=== PATIENT | male | born 1965 | race Caucasian/White ===

== ENCOUNTER → 2016-07-11 | Outpatient (CLI) | payer OTHER ==
[~2016-07-11] MED LIST: ASCO10003 PO; CALC-51 PO; CHOL20007 PO; GLUCTAB7 PO; MAGN400T6 PO; OMEG10007 PO; POTA99TA PO; REDCAP2 PO
[2016-07-11 12:08] LABS: BASO % 1.3 %; COMPLETE YES; EOS % 4.5 %; HEMATOCRIT 50.1 % (42-52); LYMPH % 28.7 %; LYMPH ABS # 2.15 K/uL (1.2-3.4); MEAN CELL VOLUME 92.1 fL (80-100); MEAN CORPUSCULAR HGB CONC 34.7 g/dl (32-36); MEAN PLATELET VOLUME 10.6 fL (7.4-10.4); MONO % 10.1 %; NEUT % 55.4 %; PLATELET COUNT 268 K/uL (130-400); RED BLOOD COUNT 5.44 M/uL (4.7-6.1)
[2016-07-11 12:50] LABS: ALT/SGPT 48 U/L (12-78); BLOOD UREA NITROGEN 15 mg/dl (7-18); BUN/CREATININE RATIO 13.9 (10-20); CALCIUM 9.1 mg/dl (8.5-10.1); CARBON DIOXIDE 28 mmol/L (21-32); CHLORIDE 103 mmol/L (98-107); CHOLESTEROL 350 mg/dl (0-200); GLUCOSE 116 mg/dl (70-99); POTASSIUM 4.2 mmol/L (3.5-5.1); SODIUM 138 mmol/L (136-145)
[2016-07-11 13:00] LABS: ALKALINE PHOSPHATASE 70 U/L (45-117); AST/SGOT 30 U/L (15-37); CHOLESTEROL/HDL RATIO 8.3; HDL CHOLESTEROL 42 mg/dl; LDL CHOLESTEROL CALCULATED 287 mg/dl; THYROID STIMULATING HORMONE 0.694 uIu/ml (0.300-4.500); TRIGLYCERIDES 107 mg/dl (0-150); VERY LOW DENSITY LIPOPROT CALC 21 mg/dl
== END | disposition home or self-care (01) ==
LOC: C.LABPVFM 08:07
PROVIDERS: ATTEND Nurse Practitioner Family
DX: R53.83 Other fatigue (principal); E78.5 Hyperlipidemia, unspecified; R03.0 Elevated blood-pressure reading, without diagnosis of hypertension

== ENCOUNTER → 2016-07-11 | Outpatient (CLI) | payer OTHER ==
--- NOTE | 2016-07-11 08:07 | DIAGNOSTIC IMAGING REPORT ---
SCROTAL ULTRASOUND CLINICAL HISTORY: Left testicular pain. COMPARISON STUDY: None. TECHNIQUE: Grayscale and color and duplex Doppler sonography of the scrotum was performed. FINDINGS: The right testis measures 4 x 1.9 x 2.8 cm and the left measures 4.3 x 1.7 x 2.8 cm. No testicular mass was identified. Color flow is identified within each testis. There were small bilateral hydroceles. There was no evidence of epididymitis. On this exam, the left testis moved between the left hemiscrotum and the inguinal canal. There was a reducible fat-containing left inguinal hernia. IMPRESSION: 1. No evidence of testicular torsion. No testicular mass. 2. Small reducible fat-containing left inguinal hernia. 3. During this exam, the left testis moved between the left hemiscrotum and the inguinal canal. 4. Small bilateral hydroceles. Electronically signed by: Barorn Barton M.D. 07/11/2016 8:05 AM Dictated Date/Time: 07/11/2016 8:03 AM
== END | disposition home or self-care (01) ==
LOC: C.ULTR 07:18
PROVIDERS: ATTEND Nurse Practitioner Family
DX: N50.812 Left testicular pain (principal)

== ENCOUNTER → 2017-06-17 | Outpatient (CLI) | payer OTHER | END | disposition home or self-care (01) | LOC: C.LABPVFM 15:54 | PROVIDERS: ATTEND Family Medicine | DX: R19.4 Change in bowel habit (principal) ==

== ENCOUNTER → 2017-07-04 | Outpatient (CLI) | payer OTHER ==
[~2017-07-04] MED LIST changes: +OPTIRAY 320 IV PRN
--- NOTE | 2017-07-04 13:16 | DIAGNOSTIC IMAGING REPORT ---
ABDOMEN AND PELVIS CT WITH IV CONTRAST CT DOSE: 666.19 mGy.cm HISTORY: Acute generalized abdominal pain with bloating R14.0 Abdominal bloatingabd bloating and discomfort (mainly epig TECHNIQUE: Multiaxial CT images of the abdomen and pelvis were performed following the use of intravenous contrast. A dose lowering technique was utilized adhering to the principles of ALARA. COMPARISON STUDY: Testicular ultrasound 07/11/2016. FINDINGS: Lung bases are clear. No pneumatosis or pneumoperitoneum identified. The cardiac chambers are unremarkable. Calcifications of the aortic annulus are partially imaged. Low attenuating 6 mm lesion of the left hepatic lobe is noted in addition to a circumscribed low attenuating 1.5 cm lesion of the right hepatic lobe, both of which suggest hepatic cysts. No intrahepatic biliary ductal dilation. The spleen, pancreas, gallbladder and adrenal glands are within normal limits. Kidneys, ureters and urinary bladder are within normal limits. Small bilateral fat filled inguinal hernias with trace left-sided fluid within the left hernia sac. Mild to moderate mixed plaquing of the aorta without aneurysm. No bulky adenopathy. No bowel obstruction or focal bowel wall thickening. There are a few scattered noninflamed colonic diverticula. There is nondistention involving the majority of the colon. Normal appendix. Small fat filled periumbilical hernia, diastases 2.0 cm. The bones appear intact. There is severe facet arthrosis at L4-L5 and L5-S1. Mild levoscoliosis of the lumbar spine. IMPRESSION: 1. No acute intra-abdominal or intrapelvic abnormality identified. No bowel obstruction or focal bowel wall thickening. 2. Normal appendix. 3. Small fat filled periumbilical hernia. Electronically signed by: Jean Pierre Cardoza M.D. 07/04/2017 1:15 PM Dictated Date/Time: 07/04/2017 12:59 PM
== END | disposition home or self-care (01) ==
LOC: C.CTS 12:11
PROVIDERS: ATTEND Family Medicine
DX: R14.0 Abdominal distension (gaseous) (principal)

== ENCOUNTER 2020-03-21 06:45 | Observation (INO) ==
--- NOTE | 2020-02-23 13:03 | PAT Medication Instructions ---
Medication Instructions Date of Service February 23, 2020 Home Medications L-Arginine(alpha-ketoglutarat) 600 mg PO QAM ascorbic acid (vitamin C) [Vitamin C] 2,000 mg PO QAM magnesium oxide 400 mg PO QAM red yeast rice 600 mg PO QAM cholecalciferol (vitamin D3) [Vitamin D3] 125 mcg PO QAM potassium gluconate 595 mg PO QAM calcium 600 mg PO QAM cetirizine 10 mg PO QAM diphenhydramine HCl [Benadryl] 25 mg PO HS PRN meloxicam 15 mg PO QAM omega 5-mmt-wrk-fish oil [[place] 3 Fish Oil] 1 cap PO QAM ASK your surgeon for instructions meloxicam 15 mg PO QAM STOP taking 2 weeks before surgery (or as soon as possible if surgery is within 2 weeks) L-Arginine(alpha-ketoglutarat) 600 mg PO QAM red yeast rice 600 mg PO QAM omega 4-dzq-eem-fish oil [[place] 3 Fish Oil] 1 cap PO QAM DO NOT take the morning of surgery ascorbic acid (vitamin C) [Vitamin C] 2,000 mg PO QAM magnesium oxide 400 mg PO QAM cholecalciferol (vitamin D3) [Vitamin D3] 125 mcg PO QAM potassium gluconate 595 mg PO QAM calcium 600 mg PO QAM cetirizine 10 mg PO QAM Take evening before surgery diphenhydramine HCl [Benadryl] 25 mg PO HS PRN(if needed) Other Notes If you have any questions please call us at [phone] or [phone] or [phone] or [phone]
--- NOTE | 2020-02-26 09:57 | Anesthesiology Consultation ---
Date of Service February 26, 2020 Assessment & Plan (1) Encounter for pre-operative examination: COVID Status: As of 02/25 assessment, patient denies travel to endemic area, known exposure/sick contacts, or symptoms of COVID19. Patient instructed that they and their household members must follow strict social distancing guidelines, wear a mask in public and avoid travel/events/gatherings for 14 days prior to surgery. Patient denies any Thanksgiving plans. Preoperative COVID19 testing to be completed prior to surgery per surgeon's arrangements. Patient made aware to self-isolate as much as possible between COVID testing and surgery. PCP office flagged re: significant hypertension at PAT visit. Chart Review Chart Review: Acceptable Risk for Surgery (pending PCP clearance 02/28) and Patient seen in Pre Admission Testing Teaching & Discussion Instructed NPO after midnight before surgery, except medications with 15 cc of water. Medication instructions provided according to the [facility] guidelines. History Surgery Operation Date: 03/21/20 07:15 Proposed Procedures p Left Anterior Total Hip Arthroplasty, Right Anterior Total Hip Arthroplasty - Shon Ellison DO Height/Weight Height: 5 ft 11 in Weight: 100.698 kg Allergies Allergy/AdvReac Type Severity Reaction Status Date / Time No Known Drug Allergies Allergy Unknown . Verified 02/16/20 10:14 Medications Home Medications Medication Instructions Recorded Confirmed Last Taken L-Arginine(alpha-ketoglutarat) 600 mg PO QAM 01/28/18 02/16/20 10/23/19 ascorbic acid (vitamin C) [Vitamin 2,000 mg PO QAM 01/28/18 02/16/20 10/26/19 08:00 C] magnesium oxide 400 mg PO QAM 01/28/18 02/16/20 10/26/19 08:00 red yeast rice 600 mg PO QAM 01/28/18 02/16/20 10/18/19 cholecalciferol (vitamin D3) 125 mcg PO QAM 10/01/19 02/16/20 10/26/19 08:00 [Vitamin D3] potassium gluconate 595 mg PO QAM 10/01/19 02/16/20 10/26/19 08:00 calcium 600 mg PO QAM 02/16/20 02/16/20 Unknown cetirizine 10 mg PO QAM 02/16/20 02/16/20 Unknown meloxicam 15 mg PO QAM 02/16/20 02/16/20 Unknown omega 9-ezg-bih-fish oil [[place] 3 1 cap PO QAM 02/16/20 02/16/20 Unknown Fish Oil] diphenhydramine HCl 25 mg PO HS PRN 02/26/20 02/26/20 Unknown Past Medical History Medical History Hernia, ventral Hyperlipidemia Hypertension "borderline" no medication Inguinal hernia RT Insomnia Exercise / Class Metabolic Activity II 4-5 Yardwork/Stairs/Walk up hill Past Family History Family History Mother Family history of diabetes mellitus Family hx of colon cancer Colorectal cancer Myocardial infarction Hypertension Father Hypertension Denies family history of Ovarian cancer Prostate cancer Breast cancer Past Surgical History Surgical History History of colonoscopy History of repair of left rotator cuff History of tonsillectomy Hx of elbow surgery RT S/P left inguinal hernia repair (10/27/19) Left Open Indirect Inguinal Hernia Repair; Bassini Repair Dr. Rosado 10/27/2019 [place] teeth removed Past Anesthesia History No Hx of Anesthesia Complications and No Family Hx of Anesthesia Complications History of PONV No Hx of PONV and No Hx of Motion Sickness Social History Smoking Status: Never smoker Do You Dip or Chew Tobacco: No Hx Alcohol Use: Yes Alcohol type: beer alcohol intake frequency: a few times a month Hx Substance Use: No substance use type: does not use Review of Systems Pt denies any recent chest pain, shortness of breath, palpitations, cough, fever, URI, or uncontrolled acid reflux. Physical Exam Vital Signs BP: 165/117. Rpt 15 mins later 148/98. Pt very anxious. Seeing PCP prior to surgery. P: 70bpm SPO2: 98% RA T: 98.0 F R: 12 ENMT Mouth: no chipped teeth and no loose teeth Thyromental Distance: > or= 3.5 Finger Breadths Mallampati Class: I Neck neck extension not limited and no facial hair Respiratory normal respiratory effort, lungs clear to auscultation Cardiovascular Rate/Rhythm: regular rate and regular rhythm Heart Sounds: + murmur (I/ pansystolic mitral area) Testing Laboratory Results 02/26/20 10:29 02/26/20 10:29 PT 10.7 Seconds (9.0-12.0) 02/26/20 10:29 INR 1.0 (0.9-1.1) 02/26/20 10:29 APTT 26.8 Seconds (21.0-31.0) 02/26/20 10:29 Hemoglobin A1c 6.0 % (4.5-5.6) H 02/26/20 10:29 Urine Color Yellow 02/26/20 10:29 Urine Appearance Clear (Clear) 02/26/20 10:29 Urine pH 7.5 (4.5-7.5) 02/26/20 10:29 Ur Specific [place] 1.011 (1.000-1.030) 02/26/20 10:29 Urine Protein Negative (Negative) 02/26/20 10:29 Urine Glucose (UA) Negative (Negative) 02/26/20 10:29 Urine Ketones Negative (Negative) 02/26/20 10:29 Urine Nitrite Negative (Negative) 02/26/20 10:29 Ur Leukocyte Esterase Negative (Negative) 02/26/20 10:29 Blood Type A Positive 02/26/20 10:29 Antibody Screen NEGATIVE 02/26/20 10:29 Electrocardiogram Date: 09/24/19 Findings: + NSR @ (80bpm) Chest X-Ray Date: 09/24/19 Findings: + NAD
[2020-02-26 11:19] LABS: Basophils # (auto) 0.06 K/uL (0-0.2); Eosinophils # (auto) 0.18 K/uL (0-0.5); Eosinophils % (auto) 2.9 %; Hematocrit (blood only) 42.9 % (42-52); Hemoglobin 14.5 g/dL (14.0-18.0); Immature Granulocytes # (auto) 0.02 K/uL (0.00-0.02); Immature Granulocytes % (auto) 0.3 %; Lymphocytes # (auto) 2.21 K/uL (1.2-3.4); Lymphocytes % (auto) 35.4 %; Mean Corpuscular Hemoglobin 30.7 pg (25-34); Mean Corpuscular Hgb Conc 33.8 g/dL (32-36); Mean Corpuscular Volume 90.7 fL (80-100); Mean Platelet Volume 9.9 fL (7.4-10.4); Monocytes # (auto) 0.51 K/uL (0.11-0.59); Monocytes % (auto) 8.2 %; Neutrophils # (auto) 3.27 K/uL (1.4-6.5); Neutrophils % (auto) 52.2 %; Platelet Count 266 K/uL (130-400); RDW Coefficient of Variation 12.8 % (11.5-14.5); RDW Standard Deviation 42.5 fL (36.4-46.3); Red Blood Count 4.73 M/uL (4.7-6.1); White Blood Count 6.25 K/uL (4.8-10.8)
[2020-02-26 11:26] LABS: Estimated Average Glucose 126 mg/dl
[2020-02-26 11:29] LABS: Appearance Urine Clear (Clear); Bilirubin Urine Negative (Negative); Blood Urine Negative (Negative); Color Urine Yellow; Glucose Urine UA Negative (Negative); Ketones Urine Negative (Negative); Leukocyte Esterase Urine Negative (Negative); Nitrite Urine Negative (Negative); Protein Urine Negative (Negative); Specific Gravity Urine 1.011 (1.000-1.030); Urobilinogen Urine Negative (Negative); pH Urine 7.5 (4.5-7.5)
[2020-02-26 11:31] LABS: Partial Thromboplastin Time 26.8 Seconds (21.0-31.0); Prothrombin Time 10.7 Seconds (9.0-12.0)
[2020-02-26 12:50] LABS: Albumin Level 3.7 gm/dl (3.4-5.0); BUN Creatinine Ratio 17.2 (10-20); Calcium 9.4 mg/dl (8.5-10.1); Creatinine Clr Calc Pharmacy 114.8 ml/min; Est GFR (African American) 110.4; Est GFR (Non-African American) 95.3; Potassium 4.2 mmol/L (3.5-5.1)
--- NOTE | 2020-03-20 15:03 | History & Physical Report ---
Date of Service March 21, 2020 Assessment & Plan (1) Degenerative joint disease of right hip: (2) Degenerative joint disease of left hip: I have indicated the patient for bilateral anterior total hip replacements. The risks, benefits and complications of surgery were explained to the patient which include but not limited to infection, acute blood loss, DVT/PE, injury to nerves, vessels, bone, soft tissue, arthrofibrosis, chronic pain, failure of the prosthesis, hip dislocation, leg length discrepancy, need for additional surgery, cardiac and pulmonary events and . The patient wished to proceed with surgery and informed consent was obtained at this time. We will plan for Lovenox post-operatively for DVT prophylaxis. Upon discharge the patient will be discharged home with home health services. Appropriate clearances by PCP were obtained. History of Present Illness Chief Complaint: Bilateral hip pain/DJD Primary Care Provider: Cori Urbina MD The patient is a 54 year old male who presents with complaints of severe bilateral hip pain and DJD. The patient has failed outpatient conservative treatments to this point which included NSAIDs, IA corticosteroid injections, home exercise/walking program and activty modification. The patient's pain and limited function have progressed to the point where they severely hinder their activities of daily living and they no longer tolerate exercise programs. They are requesting to proceed with total hip replacement surgery. Allergies Allergy/AdvReac Type Severity Reaction Status Date / Time No Known Drug Allergies Allergy Unknown . Verified 03/21/20 07:14 Home Medications Medication Instructions Recorded Confirmed Type L-Arginine(alpha-ketoglutarat) 600 mg PO QAM 01/28/18 03/21/20 History ascorbic acid (vitamin C) [Vitamin 2,000 mg PO QAM 01/28/18 03/21/20 History C] magnesium oxide 400 mg PO QAM 01/28/18 03/21/20 History red yeast rice 600 mg PO QAM 01/28/18 03/21/20 History cholecalciferol (vitamin D3) 125 mcg PO QAM 10/01/19 03/21/20 History [Vitamin D3] potassium gluconate 595 mg PO QAM 10/01/19 03/21/20 History calcium 600 mg PO QAM 02/16/20 03/21/20 History cetirizine 10 mg PO QAM 02/16/20 03/21/20 History meloxicam 15 mg PO QAM 02/16/20 03/21/20 History omega 7-lof-cfe-fish oil [[place] 3 1 cap PO QAM 02/16/20 03/21/20 History Fish Oil] diphenhydramine HCl 25 mg PO HS PRN 02/26/20 03/21/20 History Past Med/Surg History Medical History Hernia, ventral Hyperlipidemia Hypertension "borderline" no medication Inguinal hernia RT Insomnia Surgical History History of colonoscopy History of repair of left rotator cuff History of tonsillectomy Hx of elbow surgery RT S/P left inguinal hernia repair (10/27/19) Left Open Indirect Inguinal Hernia Repair; Bassini Repair Dr. Rosado 10/27/2019 [place] teeth removed Family History Mother Family history of diabetes mellitus Family hx of colon cancer Colorectal cancer Myocardial infarction Hypertension Father Hypertension Denies family history of Ovarian cancer Prostate cancer Breast cancer Social History Smoking Status: Never smoker Second Hand Exposure: No; Do You Dip or Chew Tobacco: No; Tobacco Cessation Education Requested by Patient: No Hx Alcohol Use: Yes Alcohol type: beer Hx Substance Use: No Preferred Language: [place]uran Communication Ability: Effective Chair Frame Builder Required: No Beliefs That Will Affect Care: None marital status: Single Current Living Situation: Family Current Living Situation Comment: Lives with parents current occupational status: employed 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 RLE NVSI +EHL/FHL/TA/GS SILT grossly, +2 DP pulse, compartments soft NT, limited painful ROM of the hip, antalgic gait. Constitutional: WD/WN, vitals as above Eyes: PERRL, conjunctivae normal, anicteric sclerae ENMT: external ear and nose normal, oropharynx normal Neck: trachea midline, no thyromegaly Respiratory: normal respiratory effort, lungs clear to auscultation Cardiovascular: RRR, no murmur, no edema Gastrointestinal (Abdomen): normal bowel sounds, soft, nontender, no hep atosplenomegaly Musculoskeletal: no cyanosis or clubbing, extremities motor strength 5/5 Skin: no rashes, warm and dry Neurologic: patellar DTR's 2+ bilat, sensation intact Psychiatric: A+Ox3, euthymic affect Lymphatic: no cervical or axillary lymphadenopathy Results & Data Results & Data ([facility]) Diagnostic Findings Multiple views of bilateral hips demonstrates severe DJD with complete loss of the joint space. +osteophytes, +sclerosis, +subchondral cysts. Pre Admission Testing Addendum Laboratory Results 02/26/20 10:29 02/26/20 10: PT 10.7 Seconds (9.0-12.0) 02/26/20 10: INR 1.0 (0.9-1.1) 02/26/20 10: APTT 26.8 Seconds (21.0-31.0) 02/26/20 10:29 Hemoglobin A1c 6.0 % (4.5-5.6) H 02/26/20 10: Urine Color Yellow 02/26/20 10: Urine Appearance Clear (Clear) 02/26/20 10: Urine pH 7.5 (4.5-7.5) 02/26/20 10: Ur Specific [place] 1.011 (1.000-1.030) 02/26/20 10:29 Urine Protein Negative (Negative) 02/26/20 10:29 Urine Glucose (UA) Negative (Negative) 02/26/20 10:29 Urine Ketones Negative (Negative) 02/26/20 10: Urine Nitrite Negative (Negative) 02/26/20 10: Ur Leukocyte Esterase Negative (Negative) 02/26/20 10: Blood Type A Positive 02/26/20 10: Antibody Screen NEGATIVE 02/26/20 10:29
[~2020-03-21 06:45] MED LIST changes: +ACETAMINOPHEN 500 MG TAB PO SCH; -ASCO10003 PO; +BUPIVACAINE 0.5 % 5 MG/1 ML PF 10ML VIAL ONE; -CALC-51 PO; -CHOL20007 PO; +CeleBREX 200 MG CAP PO SCH; +FAMOTIDINE 20 MG TAB PO SCH; +GABAPENTIN 900 MG DOSE PO SCH; -GLUCTAB7 PO; +LR 15ML/HR IV SCH; +LR 500ML BOLUS, THEN 15ML/HR IV SCH; -MAGN400T6 PO; -OMEG10007 PO; -OPTIRAY 320 IV PRN; -POTA99TA PO; -REDCAP2 PO; +ROPIVACAINE 0.5% HCL/PF 150 MG, BUPIVACAINE 0.5% MPF 30 ML, EPINEPHrine 30MG/30ML (OR U... INSTIL SCH; +TRANEXAMIC ACID 1,000 MG **IV Intra-op IV SCH; +TRANEXAMIC ACID 1,000 MG **IV Pre-op IV SCH; +ceFAZolin 2000MG 2,000 MG/15 ML SYR IV SCH
[2020-03-21] MEDS ORDERED: MIDAZOLAM HCL 1 MG/ML 2ML VIAL ONE ×3 (08:13→12:14)
[2020-03-21] MEDS ORDERED: LIDOCAINE HCL 2% 2 ML VIAL/AMP(20MG/ML) INFIL ONE (08:13)
[2020-03-21] MEDS ORDERED: PROPOFOL IV EMULSION 10 MG/ML 20 ML VIAL IV ONE ×6 (08:13→14:25)
[2020-03-21] MEDS ORDERED: fentaNYL citrate 100 MCG/2 ML VIAL ONE (08:13)
--- NOTE | 2020-03-21 09:04 | History & Physical Bridge Note ---
Date of Service March 21, 2020 History & Physical Bridge Note I have examined the patient, reviewed the History & Physical and in the interval since the performance of the History & Physical I have noted the following changes of clinical significance: no changes noted
[2020-03-21] MEDS ORDERED: ORTHO JOINT ANESTHETIC ONE (09:11)
[2020-03-21] MEDS ORDERED: BACITRACIN INJ 50,000 UNIT VIAL ONE ×2 (09:11→10:35)
[2020-03-21] MEDS ORDERED: ONDANSETRON INJ 2 MG/ML 2 ML VIAL IV PRN ×2 (09:50→16:25)
[2020-03-21] MEDS ORDERED: HYDROmorphone INJ 2 MG/ML SYR/VIAL IV PRN (09:50)
[2020-03-21] MEDS ORDERED: ePHEDrine sulfate 50 MG/ML AMP IV PRN (09:50)
[2020-03-21] MEDS ORDERED: METOCLOPRAMIDE HCL INJ 5 MG/ML 2 ML VIAL IV PRN ×2 (09:50→16:25)
[2020-03-21] MEDS ORDERED: PROMETHAZINE HCL 12.5 MG in SODIUM CHLORIDE 0.9% 50 ML IV PRN (09:50)
[2020-03-21] MEDS ORDERED: ATROPINE SULFATE 0.1 MG/ML 10ML SYR IV PRN (09:50)
[2020-03-21] MEDS ORDERED: ceFAZolin 2000MG 2,000 MG/15 ML SYR IV ONE (14:09)
--- NOTE | 2020-03-21 14:15 | Post Operative Brief Note ---
Immediate Post Op Note v1 Date of Surgery March 21, 2020 Pre & Post Diagnosis Operation Date: 03/21/20 09:20 Pre-Op Diagnosis: Osteoarthritis, Left Hip, Osteoarthritis, Right Hip Post-Op Diagnosis: Osteoarthritis, Left Hip, Osteoarthritis, Right Hip I identified the patient and participated in the time-out.: Yes Procedure Operation Date: 03/21/20 09:20 Actual Procedures p Left Anterior Total Hip Arthroplasty, Right Anterior Total Hip Arthroplasty(Bilateral) - Shon Ellison DO Surgeon Shon Ellison DO Independent Film Maker Bladimir Kuo Estimated Blood Loss 370 Findings Consistent with Post-Op Diagnosis Fluids 2000 cc LR Specimens left hip femoral head right hip femoral head Anesthesia Type Spinal MAC Complications none Disposition Disposition: Recovery Room Overlapping Procedure I was present for: the critical portions of procedure. I was immediately available: during the entire case. Back up surgeon: was not required during procedure.
--- NOTE | 2020-03-21 14:17 | Operative Report ---
Post Operative Report Pre & Post Diagnosis Operation Date: 03/21/20 09:20 Pre-Op Diagnosis: Osteoarthritis, Left Hip, Osteoarthritis, Right Hip Post-Op Diagnosis: Osteoarthritis, Left Hip, Osteoarthritis, Right Hip I identified the patient and participated in the time-out.: Yes Procedure Operation Date: 03/21/20 09:20 Actual Procedures p Left Anterior Total Hip Arthroplasty, Right Anterior Total Hip Arthroplasty(Bilateral) - Shon Ellison DO Surgeon Shon Ellison DO Warehouse Sorter Bladimir Kuo Estimated Blood Loss 370 Findings Consistent with Post-Op Diagnosis Fluids 2000 cc LR Specimens Left hip femoral head Right hip femoral head Anesthesia Type Spinal MAC Complications none Disposition Disposition: Recovery Room Indications The patient is a 54 year old male who presents with complaints of severe bilateral hip pain and DJD. The patient has failed outpatient conservative treatments to this point which included NSAIDs, IA corticosteroid injections, home exercise/walking program and activity modification. The patient's pain and limited function have progressed to the point where they severely hinder their activities of daily living and they no longer tolerate exercise programs. They are requesting to proceed with total hip replacement surgery. I have indicated the patient for bilateral anterior total hip replacements. The risks, benefits and complications of surgery were explained to the patient which include but not limited to infection, acute blood loss, DVT/PE, injury to nerves, vessels, bone, soft tissue, arthrofibrosis, chronic pain, failure of the prosthesis, hip dislocation, leg length discrepancy, need for additional surgery, cardiac and pulmonary events and . The patient wished to proceed with surgery and informed consent was obtained at this time. We will plan for Lovenox post-operatively for DVT prophylaxis. Upon discharge the patient will be discharged home with home health services. Appropriate clearances by PCP we re obtained. Description of Procedure Left hip COMPONENTS USED: [employer] hip system: Acetabulum size 52, femur size 6 high offset, femoral head 36+0, liner 5236, acetabular screw 25 mm x 1. Right hip COMPONENTS USED: [employer] hip system: Acetabulum size 52, femur size 6 high offset, femoral head 36+4, liner 5236, acetabular screw 25 mm x 1. DESCRIPTION OF PROCEDURE: Following satisfactory spinal anesthesia, the patient was placed supine on the OR table. The right leg was placed in the well leg ho lder and the left leg in the traction device. The left leg was prepared with ChloraPrep and draped sterilely. A surgical timeout was performed, patient identified and site rickey verified. Appropriate antibiotics were given. A standard anterior approach in the interval between the sartorius and tensor muscles was performed. Dissection was carried down through subcutaneous tissues. Electrocautery was utilized for hemostasis. Circumflex femoral vessels were identified, tied and ligated. The anterior capsular fat pad was removed and the capsulotomy was performed revealing the arthritic femoral neck and head. A femoral neck cut was made with reciprocating saw and the bone fragments removed. The acetabular self-retraining retractor was placed. Acetabular reaming was completed under fluoroscopic guidance, a 52 shell was impacted into an anatomic position and secured with a acetabular screw. Local anesthetic was placed and following irrigation, the polyethylene liner was placed. The femur was placed into position of external rotation, extension and adduction. Femoral canal was prepared up to the size 6 high offset. Trial reduction with a +0 neck length head showed good soft tissue tension, leg lengths restored, and good fit and fill of the proximal canal using fluoroscopic landmarks. The hip was dislocated. The trial component was removed. The final implant was placed. The hip was irrigated with sterile saline solution and reduced. A Betadine soak was performed. After 3 minutes, the hip was once more irrigated with copious sterile saline solution with bacitracin. Susy-incisional soft tissue was injected utilizing [place] Orthomix which includes a combination of Ropivicaine 0.5% 150mg, Bupivicaine 0.5%/Epinephrine 1:200,000 30ml, Toradol 30mg, Dexamethasone 4mg, Ketamine 10mg, Clonidine 100mcg and NSS 30ml solution. The capsule was then closed with 1-0 Vicryl interrupted figure of eight sutures. The fascia was closed with a running suture of #1 Vicryl, the subcutaneous tissues with 2-0 Vicryl and the skin with a running subcuticular stitch of 3-0 V-Loc. Dermabond prineo and a dry dressing were applied. Upon completion of the left anterior total hip, the drapes were removed and the patient repositioned onto the OR table. Care was taken to inspect and pad all georgie prominences. The left leg was placed in the well leg ramirez and the right leg in the traction device. The right leg was prepared with ChloraPrep and draped sterilely. A second surgical timeout was performed, patient identified and site rickey verified. Appropriate antibiotics were given prior to the start of the case. A standard anterior approach in the interval between the sartorius and tensor muscles was performed. Dissection was carried down through subcutaneous tissues. Electrocautery was utilized for hemostasis. Circumflex femoral vessels were identified, tied and ligated. The anterior capsular fat pad was removed and the capsulotomy was performed revealing the arthritic femoral neck and head. A femoral neck cut was made with reciprocating saw and the bone fragments removed. The acetabular self-retraining retractor was placed. Acetabular reaming was completed under fluoroscopic guidance, a 52 shell was impacted into an anatomic position and secured with a acetabular screw. Local anesthetic was placed and following irrigation, the polyethylene liner was placed. The femur was placed into position of external rotation, extension and adduction. Femoral canal was prepared up to the size 6 high offset. Trial reduction with a +4 neck length head showed good soft tissue tension, leg lengths restored, and good fit and fill of the proximal canal using fluoroscopic landmarks. The hip was dislocated. The trial component was removed. The final implant was placed. The hip was irrigated with sterile saline solution and reduced. A Betadine soak was performed. After 3 minutes, the hip was once more irrigated with copious sterile saline solution with bacitracin. Susy-incisional soft tissue was injected with the remaining [place] Orthomix which includes a combination of Ropivicaine 0.5% 150mg, Bupivicaine 0.5%/Epinephrine 1:200,000 3 0ml, Toradol 30mg, Dexamethasone 4mg, Ketamine 10mg, Clonidine 100mcg and NSS 30ml solution. The capsule was then closed with 1-0 Vicryl interrupted figure of eight sutures. The fascia was closed with a running suture of #1 Vicryl, the subcutaneous tissues with 2-0 Vicryl and the skin with a running subcuticular stitch of 3-0 V-Loc. Dermabond prineo and a dry dressing were applied. The patient tolerated the procedure well and was transported to PACU in stable condition. Due to the complex nature of the procedure, the entire surgery was performed with the operational assistance of Bladimir Kuo PA-C. The showroom sales assistant, under direct supervision, was involved in the actual performance of all aspects of the surgical procedure including patient positioning, hemostasis, tissue retraction, instrument management and wound closure. I attest to the content of the Intraoperative Record and any orders documented therein. Any exceptions are noted below.
--- NOTE | 2020-03-21 14:21 | Fluoroscopy Report ---
FL hip LT 1V CLINICAL HISTORY: Postsurgical study COMPARISON STUDY: 04/04/2018 FLUOROSCOPY TIME: 45 seconds. NUMBER OF FLUOROSCOPIC IMAGES: 2 FINDINGS: 2 intraoperative fluoroscopic spot images reveal postsurgical changes of a total left hip a rthroplasty. There is no dislocation. The femoral and acetabular components appear well seated. IMPRESSION: Intraoperative fluoroscopic spot images demonstrating a total left hip arthroplasty ACT 112: Negative or not required by law. Electronically signed by: Claudio Bowles M.D. 03/21/2020 2:20 PM
--- NOTE | 2020-03-21 14:22 | Fluoroscopy Report ---
FL hip RT 1V CLINICAL HISTORY: Postoperative study COMPARISON STUDY: FLUOROSCOPY TIME: 48 seconds. NUMBER OF FLUOROSCOPIC IMAGES: 1 FINDINGS: A single intraoperative fluoroscopic spot images provided for interpretation. This reveals postsurgical changes of a total right hip arthroplasty. The acetabular femoral components appear well seated. There is no dislocation. IMPRESSION: Postsurgical changes of a total right hip arthroplasty. ACT 112: Negative or not required by law. Electronically signed by: Claudio Bowles M.D. 03/21/2020 2:21 PM
[2020-03-21] MEDS ORDERED: PHENYLEPHRINE 100MCG/ML 5ML SYR IV PRN (15:03)
--- NOTE | 2020-03-21 15:28 | Anesthesia Procedure Note ---
Date of Service March 21, 2020 Anesthesia Post Epidural Note Vital Signs Vital Signs: Temp Pulse Resp BP Pulse Ox 37 C 82 18 159/94 H 97 03/21/20 07:25 03/21/20 07:58 03/21/20 07:58 03/21/20 07:58 03/21/20 07:58 Notes Mental Status: alert / awake / arousable Nausea / Vomiting: adequately controlled Pain: adequately controlled Airway Patency, RR, SpO2: stable & adequate BP & HR: stable & adequate Hydration State: stable & adequate Neuraxial Anesthesia: was administered and sensory block is resolving Anesthetic Complications: no major complications apparent and Pt Satisfied with anesthetic care Epidural: Removed without complications and With tip intact
--- NOTE | 2020-03-21 15:29 | Anesthesiology Progress Note ---
Date of Service March 21, 2020 Anesthesia Post Procedure Vital Signs Vital Signs: Temp Pulse Resp BP Pulse Ox 03/21/20 07:58 82 18 159/94 H 97 03/21/20 07:25 37 C 90 20 150/85 H 96 Transfer of Care Handoff Completed per policy Notes Mental Status: alert / awake / arousable and participated in evaluation Patient Amnestic to Procedure: Yes Nausea / Vomiting: adequately controlled Pain: adequately controlled Airway Patency, RR, SpO2: stable & adequate BP & HR: stable & adequate Hydration State: stable & adequate Neuraxial Anesthesia: was administered and sensory block is resolving Anesthetic Complications: no major complications apparent
[2020-03-21] MEDS: fentaNYL citrate 100 MCG/2 ML VIAL IV PRN ×4 (15:30→15:55)
--- NOTE | 2020-03-21 15:31 | XRay Report ---
XR hips [place] 1v w pelvis HISTORY: 54 years-old Male IN PACU - A/P PELVIS and LATERAL HIP postoperative exam. COMPARISON: Pelvis and hip radiographs 10/05/2019 TECHNIQUE: AP view the pelvis with crosstable lateral views of the bilateral hips FINDINGS: Bilateral hip total joint arthroplasties. Satisfactory alignment. No acute fracture or unexpected opa que foreign body. Expected postsurgical soft tissue swelling and deep tissue air. IMPRESSION: Bilateral hip total joint arthroplasties with expected postoperative changes. ACT 112: Negative or not required by law. The above report was generated using voice recognition software. It may contain grammatical, syntax o r spelling errors. Electronically signed by: Jean Pierre Cardoza M.D. 03/21/2020 3:30 PM
[2020-03-21] MEDS ORDERED: bisacodyL 10 MG SUPP PR PRN (16:25)
[2020-03-21] MEDS ORDERED: NALOXONE HCL 0.4 MG/1 ML VIAL/CARP IV PRN (16:25)
[2020-03-21] MEDS ORDERED: MAGNESIUM HYDROXIDE SUSP 30 ML UDC PO PRN (16:25)
[2020-03-21] MEDS: HYDROmorphone INJ 0.5 MG/0.5 ML SYR IV PRN ×2 (16:43→20:40)
[2020-03-21] MEDS: SODIUM CHLORIDE 0.9% 1000ML 1,000 ML IV SCH (16:59)
[2020-03-21] MEDS: ceFAZolin 2000MG 2,000 MG/15 ML SYR IV SCH (18:05)
--- NOTE | 2020-03-21 20:10 | Orthopedic Progress Note ---
Date of Service March 21, 2020 Assessment & Plan (1) Degenerative joint disease of right hip: (2) Degenerative joint disease of left hip: s/p B/L anterior MAVERICK -ancef x 24 -DVT ppx: SCDs, TEDs, Lovenox daily -WBAT B/L LE -PT/OT -PO XR B/L hips demonstrates well aligned well fixed total hip prothesis without fracture/dislocation -am labs -DC planning Admission and Anticipated Discharge Date Admission Date: March 21, 2020 Subjective Post Operative Progress Note Patient seen sitting up in bed, comfortable, denies complaints, pain well controlled, no acute issues. Review of Systems Review of Systems: All systems reviewed & are unremarkable except as noted in HPI & below Constitutional: as per Subjective / HPI Physical Exam Physical Exam: LLE NVSI +EHL/FHL/TA/GS SILT grossly, +2 DP pulse, compartments soft NT, dressing cdi. RLE NVSI +EHL/FHL/TA/GS SILT grossly, +2 DP pulse, compartments soft NT, dressing cdi. Constitutional: WD/WN, vitals as above Results & Data ([facility]) Vital Signs (Past 12 Hours) Vital Signs Temp Pulse Pulse Resp BP Pulse Ox 03/21/20 19:07 36.4 C L 75 18 132/89 97 03/21/20 17:33 36.4 C L 76 18 162/96 H 96 03/21/20 17:05 37.0 C 78 16 160/59 H 95 03/21/20 17:04 36.4 C L 77 16 134/83 98 03/21/20 16:05 80 16 160/86 H 94 03/21/20 15:55 36.8 C 78 12 152/88 H 92 03/21/20 15:45 74 19 177/94 H 100 03/21/20 15:35 75 18 150/89 H 100 03/21/20 15:25 73 13 120/60 100 03/21/20 15:15 73 14 116/68 100 03/21/20 15:05 73 15 102/50 L 100 03/21/20 14:55 77 14 77/46 L 99 03/21/20 14:45 36.7 C 86 16 71/38 L 98
[2020-03-21] MEDS: SENNA 8.6 MG TAB PO SCH (20:28)
[2020-03-21] MEDS: DOCUSATE SODIUM 100 MG CAP PO SCH (20:28)
[2020-03-21] MEDS: ACETAMINOPHEN 500 MG TAB PO SCH (22:07)
[2020-03-22] MEDS: oxyCODONE HCL IR 5 MG TAB (IMMEDIATE RELEASE) PO PRN ×3 (00:27→17:47)
[2020-03-22] MEDS: ceFAZolin 2000MG 2,000 MG/15 ML SYR IV SCH (02:10)
[2020-03-22] MEDS: HYDROmorphone INJ 0.5 MG/0.5 ML SYR IV PRN ×3 (03:37→23:48)
[2020-03-22] MEDS: SODIUM CHLORIDE 0.9% 1000ML 1,000 ML IV SCH (03:47)
[2020-03-22] MEDS: ACETAMINOPHEN 500 MG TAB PO SCH ×3 (05:44→22:08)
[2020-03-22 06:22] LABS: Basophils # (auto) 0.02 K/uL (0-0.2); Basophils % (auto) 0.2 %; Eosinophils # (auto) 0.17 K/uL (0-0.5); Eosinophils % (auto) 1.5 %; Hematocrit (blood only) 31.8 % (42-52); Hemoglobin 10.5 g/dL (14.0-18.0); Immature Granulocytes # (auto) 0.03 K/uL (0.00-0.02); Immature Granulocytes % (auto) 0.3 %; Lymphocytes # (auto) 1.46 K/uL (1.2-3.4); Lymphocytes % (auto) 12.6 %; Mean Corpuscular Hemoglobin 30.7 pg (25-34); Mean Platelet Volume 9.4 fL (7.4-10.4); Monocytes # (auto) 0.85 K/uL (0.11-0.59); Monocytes % (auto) 7.3 %; Neutrophils # (auto) 9.04 K/uL (1.4-6.5); Neutrophils % (auto) 78.1 %; Platelet Count 214 K/uL (130-400); RDW Coefficient of Variation 13.1 % (11.5-14.5); RDW Standard Deviation 44.5 fL (36.4-46.3); Red Blood Count 3.42 M/uL (4.7-6.1); White Blood Count 11.57 K/uL (4.8-10.8)
[2020-03-22 06:53] LABS: BUN Creatinine Ratio 11.6 (10-20); Calcium 8.1 mg/dl (8.5-10.1); Est GFR (African American) 123.6; Est GFR (Non-African American) 106.6; Potassium 4.3 mmol/L (3.5-5.1)
--- NOTE | 2020-03-22 07:18 | Orthopedic Progress Note ---
Date of Service March 22, 2020 Assessment & Plan (1) Degenerative joint disease of right hip: (2) Degenerative joint disease of left hip: s/p B/L anterior MAVERICK POD#1 -ancef x 24 -DVT ppx: SCDs, TEDs, Lovenox daily -WBAT B/L LE -PT/OT -PO XR B/L hips demonstrates well aligned well fixed total hip prothesis without fracture/dislocation -am labs as above, hgb 10.5 -DC planning Admission and Anticipated Discharge Date Admission Date: March 21, 2020 Subjective Post Operative Progress Note Patient seen sitting up in bed, comfortable, denies complaints, pain well controlled, no acute issues. Denies F/C/N/V/SOB/CP. Review of Systems Review of Systems: All systems reviewed & are unremarkable except as noted in HPI & below Constitutional: as per Subjective / HPI Physical Exam Physical Exam: LLE NVSI +EHL/FHL/TA/GS SILT grossly, +2 DP pulse, compartments soft NT, dressing cdi. RLE NVSI +EHL/FHL/TA/GS SILT grossly, +2 DP pulse, compartments soft NT, dressing cdi. Constitutional: WD/WN, vitals as above Results & Data ([facility]) Vital Signs (Past 12 Hours) Vital Signs Temp Pulse Pulse Resp BP BP Pulse Ox 03/22/20 03:00 36.8 C 82 18 130/76 100 03/21/20 23:46 36.4 C L 84 16 162/91 H 99 03/21/20 20:26 36.4 C L 77 19 146/88 H 99 Laboratory Results 03/22/20 03/22/20 Range/Units 05:53 05:53 WBC 11.57 H (4.8-10.8) K/uL RBC 3.42 L (4.7-6.1) M/uL Hgb 10.5 L (14.0-18.0) g/dL Hct 31.8 L (42-52) % MCV 93.0 (80-100) fL MCH 30.7 (25-34) pg MCHC 33.0 (32-36) g/dL RDW Std Deviation 44.5 (36.4-46.3) fL RDW Coeff of Vincent 13.1 (11.5-14.5) % Plt Count 214 (130-400) K/uL MPV 9.4 (7.4-10.4) fL Immature Gran % (Auto) 0.3 % Neut % (Auto) 78.1 % Lymph % (Auto) 12.6 % [place] % (Auto) 7.3 % Eos % (Auto) 1.5 % Baso % (Auto) 0.2 % Neut # (Auto) 9.04 H (1.4-6.5) K/uL Lymph # (Auto) 1.46 (1.2-3.4) K/uL [place] # (Auto) 0.85 H (0.11-0.59) K/uL Eos # (Auto) 0.17 (0-0.5) K/uL Baso # (Auto) 0.02 (0-0.2) K/uL Immature Gran # (Auto) 0.03 H (0.00-0.02) K/uL Sodium 137 (136-145) mmol/L Potassium 4.3 (3.5-5.1) mmol/L Chloride 105 (98-107) mmol/L Carbon Dioxide 29 (21-32) mmol/L Anion Gap 3.0 (3-11) BUN 8 (7-18) mg/dl Creatinine 0.73 (0.6-1.4) mg/dl Est Cr Clr Drug Dosing 143.0 ml/min Est GFR ( Amer) 123.6 Est GFR (Non-Af Amer) 106.6 BUN/Creatinine Ratio 11.6 (10-20) Glucose 132 H (70-99) mg/dl Calcium 8.1 L (8.5-10.1) mg/dl
[2020-03-22] MEDS: ENOXAPARIN INJ 40 MG/0.4 ML SYR SQ SCH (08:41)
[2020-03-22] MEDS: MULTIVITAMIN TAB PO SCH (08:41)
[2020-03-22] MEDS: DOCUSATE SODIUM 100 MG CAP PO SCH ×2 (08:42→21:00)
[2020-03-22] MEDS ORDERED: NON-FORMULARY MEDICATION (Potassium Gluconate 595 mg (99 mg) Tablet) PO SCH (09:00)
[2020-03-22] MEDS: SENNA 8.6 MG TAB PO SCH (20:59)
[2020-03-23] MEDS: ACETAMINOPHEN 500 MG TAB PO SCH ×3 (05:39→22:04)
[2020-03-23] MEDS: HYDROmorphone INJ 0.5 MG/0.5 ML SYR IV PRN (05:39)
[2020-03-23 05:58] LABS: Basophils # (auto) 0.03 K/uL (0-0.2); Basophils % (auto) 0.3 %; Eosinophils # (auto) 0.26 K/uL (0-0.5); Eosinophils % (auto) 2.3 %; Hematocrit (blood only) 31.3 % (42-52); Hemoglobin 10.4 g/dL (14.0-18.0); Immature Granulocytes # (auto) 0.02 K/uL (0.00-0.02); Immature Granulocytes % (auto) 0.2 %; Lymphocytes # (auto) 2.14 K/uL (1.2-3.4); Lymphocytes % (auto) 18.7 %; Mean Corpuscular Hgb Conc 33.2 g/dL (32-36); Mean Corpuscular Volume 93.2 fL (80-100); Mean Platelet Volume 9.6 fL (7.4-10.4); Monocytes # (auto) 1.07 K/uL (0.11-0.59); Monocytes % (auto) 9.4 %; Neutrophils % (auto) 69.1 %; Platelet Count 213 K/uL (130-400); RDW Standard Deviation 44.4 fL (36.4-46.3); Red Blood Count 3.36 M/uL (4.7-6.1); White Blood Count 11.42 K/uL (4.8-10.8)
[2020-03-23 06:25] LABS: BUN Creatinine Ratio 12.3 (10-20); Calcium 8.3 mg/dl (8.5-10.1); Creatinine Clr Calc Pharmacy 132.2 ml/min; Est GFR (African American) 119.7; Est GFR (Non-African American) 103.2; Potassium 3.7 mmol/L (3.5-5.1)
[2020-03-23] MEDS: ENOXAPARIN INJ 40 MG/0.4 ML SYR SQ SCH (08:27)
[2020-03-23] MEDS: DOCUSATE SODIUM 100 MG CAP PO SCH ×2 (08:28→22:04)
[2020-03-23] MEDS: MULTIVITAMIN TAB PO SCH (08:28)
[2020-03-23] MEDS: oxyCODONE HCL IR 5 MG TAB (IMMEDIATE RELEASE) PO PRN ×4 (08:54→22:02)
--- NOTE | 2020-03-23 10:30 | Orthopedic Progress Note ---
Date of Service March 23, 2020 Assessment & Plan (1) Degenerative joint disease of right hip: (2) Degenerative joint disease of left hip: s/p B/L anterior MAVERICK POD#2 -ancef x 24 -DVT ppx: SCDs, TEDs, Lovenox daily -WBAT B/L LE -PT/OT -PO XR B/L hips demonstrates well aligned well fixed total hip prothesis without fracture/dislocation -am labs as above, hgb 10.4 -DC planning - home with home health POD#1 -ancef x 24 -DVT ppx: SCDs, TEDs, Lovenox daily -WBAT B/L LE -PT/OT -PO XR B/L hips demonstrates well aligned well fixed total hip prothesis without fracture/dislocation -am labs as above, hgb 10.5 -DC planning Admission and Anticipated Discharge Date Admission Date: March 21, 2020 Subjective Post Operative Progress Note Patient seen sitting up in bed, comfortable, reports difficulty ambulating and signficant weakness, pain well controlled, no acute issues. Denies F/C/N/V/SOB/CP. Review of Systems Review of Systems: All systems reviewed & are unremarkable except as noted in HPI & below Constitutional: as per Subjective / HPI Physical Exam Physical Exam: RLE NVSI +EHL/FHL/TA/GS SILT grossly, +2 DP pulse, compartments soft NT, dressing cdi. LLE NVSI +EHL/FHL/TA/GS SILT grossly, +2 DP pulse, compartments soft NT, dressing cdi. Constitutional: WD/WN, vitals as above Results & Data ([facility]) Vital Signs (Past 12 Hours) Vital Signs Temp Pulse Resp BP Pulse Ox 03/23/20 07:00 36.8 C 81 16 130/78 94 03/22/20 23:55 36.6 C 73 16 122/77 95 Laboratory Results 03/23/20 03/23/20 Range/Units 05:26 05:26 WBC 11.42 H (4.8-10.8) K/uL RBC 3.36 L (4.7-6.1) M/uL Hgb 10.4 L (14.0-18.0) g/dL Hct 31.3 L (42-52) % MCV 93.2 (80-100) fL MCH 31.0 (25-34) pg MCHC 33.2 (32-36) g/dL RDW Std Deviation 44.4 (36.4-46.3) fL RDW Coeff of Vincent 13.0 (11.5-14.5) % Plt Count 213 (130-400) K/uL MPV 9.6 (7.4-10.4) fL Immature Gran % (Auto) 0.2 % Neut % (Auto) 69.1 % Lymph % (Auto) 18.7 % [place] % (Auto) 9.4 % Eos % (Auto) 2.3 % Baso % (Auto) 0.3 % Neut # (Auto) 7.90 H (1.4-6.5) K/uL Lymph # (Auto) 2.14 (1.2-3.4) K/uL [place] # (Auto) 1.07 H (0.11-0.59) K/uL Eos # (Auto) 0.26 (0-0.5) K/uL Baso # (Auto) 0.03 (0-0.2) K/uL Immature Gran # (Auto) 0.02 (0.00-0.02) K/uL Sodium 136 (136-145) mmol/L Potassium 3.7 (3.5-5.1) mmol/L Chloride 103 (98-107) mmol/L Carbon Dioxide 29 (21-32) mmol/L Anion Gap 4.0 (3-11) BUN 10 (7-18) mg/dl Creatinine 0.79 (0.6-1.4) mg/dl Est Cr Clr Drug Dosing 132.2 ml/min Est GFR ( Amer) 119.7 Est GFR (Non-Af Amer) 103.2 BUN/Creatinine Ratio 12.3 (10-20) Glucose 119 H (70-99) mg/dl Calcium 8.3 L (8.5-10.1) mg/dl
[2020-03-23] MEDS: SENNA 8.6 MG TAB PO SCH (22:04)
[2020-03-23] MEDS: diphenhydrAMINE Capsule 25 MG CAP PO PRN (23:41)
[2020-03-24] MEDS: oxyCODONE HCL IR 5 MG TAB (IMMEDIATE RELEASE) PO PRN ×4 (04:38→18:01)
[2020-03-24] MEDS: ACETAMINOPHEN 500 MG TAB PO SCH ×3 (05:39→22:16)
[2020-03-24 06:24] LABS: Basophils # (auto) 0.03 K/uL (0-0.2); Basophils % (auto) 0.3 %; Eosinophils # (auto) 0.32 K/uL (0-0.5); Eosinophils % (auto) 3.2 %; Hematocrit (blood only) 28.5 % (42-52); Hemoglobin 9.5 g/dL (14.0-18.0); Immature Granulocytes # (auto) 0.03 K/uL (0.00-0.02); Immature Granulocytes % (auto) 0.3 %; Lymphocytes # (auto) 1.69 K/uL (1.2-3.4); Mean Corpuscular Hemoglobin 30.6 pg (25-34); Mean Corpuscular Hgb Conc 33.3 g/dL (32-36); Mean Corpuscular Volume 91.9 fL (80-100); Mean Platelet Volume 9.2 fL (7.4-10.4); Monocytes # (auto) 1.05 K/uL (0.11-0.59); Monocytes % (auto) 10.6 %; Neutrophils # (auto) 6.81 K/uL (1.4-6.5); Neutrophils % (auto) 68.6 %; Platelet Count 211 K/uL (130-400); RDW Standard Deviation 43.5 fL (36.4-46.3); White Blood Count 9.93 K/uL (4.8-10.8)
[2020-03-24 06:32] LABS: BUN Creatinine Ratio 11.1 (10-20); Calcium 8.2 mg/dl (8.5-10.1); Creatinine Clr Calc Pharmacy 139.2 ml/min; Est GFR (African American) 122.2; Est GFR (Non-African American) 105.5; Potassium 3.6 mmol/L (3.5-5.1)
--- NOTE | 2020-03-24 08:16 | Orthopedic Progress Note ---
Date of Service March 24, 2020 Assessment & Plan (1) Degenerative joint disease of right hip: (2) Degenerative joint disease of left hip: s/p B/L anterior MAVERICK POD#3 -ancef x 24 -DVT ppx: SCDs, TEDs, Lovenox daily -WBAT B/L LE -PT/OT, patient feels as though he is not quite safe to go home yet, as he has little help there. He would like to work with PT one more day and D/C tomorrow. -PO XR B/L hips demonstrates well aligned well fixed total hip prothesis without fracture/dislocation -am labs as above, hgb 9.5 -DC planning - home with home health, POD#2 -ancef x 24 -DVT ppx: SCDs, TEDs, Lovenox daily -WBAT B/L LE -PT/OT -PO XR B/L hips demonstrates well aligned well fixed total hip prothesis without fracture/dislocation -am labs as above, hgb 10.4 -DC planning - home with home health POD#1 -ancef x 24 -DVT ppx: SCDs, TEDs, Lovenox daily -WBAT B/L LE -PT/OT -PO XR B/L hips demonstrates well aligned well fixed total hip prothesis without fracture/dislocation -am labs as above, hgb 10.5 -DC planning Admission and Anticipated Discharge Date Admission Date: March 21, 2020 Subjective Post Operative Progress Note Patient seen resting in bed, comfortable, reports doing better with ambulation, pain well controlled, no acute issues. Denies F/C/N/V/SOB/CP. Review of Systems Review of Systems: All systems reviewed & are unremarkable except as noted in HPI & below Physical Exam Physical Exam: LLE NVSI +EHL/FHL/TA/GS SILT grossly, +2 DP pulse, compartments soft NT, dressing cdi. RLE NVSI +EHL/FHL/TA/GS SILT grossly, +2 DP pulse, compartments soft NT, dressing cdi. Constitutional: WD/WN, vitals as above Results & Data ([facility]) Vital Signs (Past 12 Hours) Vital Signs Temp Pulse Resp BP Pulse Ox 03/24/20 07:28 36.5 C 79 16 133/77 93 03/24/20 06:34 37.1 C 84 14 126/71 96 03/23/20 23:16 37.5 C 87 14 118/68 93 Laboratory Results 03/24/20 03/24/20 Range/Units 05:43 05:43 WBC 9.93 (4.8-10.8) K/uL RBC 3.10 L (4.7-6.1) M/uL Hgb 9.5 L (14.0-18.0) g/dL Hct 28.5 L (42-52) % MCV 91.9 (80-100) fL MCH 30.6 (25-34) pg MCHC 33.3 (32-36) g/dL RDW Std Deviation 43.5 (36.4-46.3) fL RDW Coeff of Vincent 13.0 (11.5-14.5) % Plt Count 211 (130-400) K/uL MPV 9.2 (7.4-10.4) fL Immature Gran % (Auto) 0.3 % Neut % (Auto) 68.6 % Lymph % (Auto) 17.0 % [place] % (Auto) 10.6 % Eos % (Auto) 3.2 % Baso % (Auto) 0.3 % Neut # (Auto) 6.81 H (1.4-6.5) K/uL Lymph # (Auto) 1.69 (1.2-3.4) K/uL [place] # (Auto) 1.05 H (0.11-0.59) K/uL Eos # (Auto) 0.32 (0-0.5) K/uL Baso # (Auto) 0.03 (0-0.2) K/uL Immature Gran # (Auto) 0.03 H (0.00-0.02) K/uL Sodium 137 (136-145) mmol/L Potassium 3.6 (3.5-5.1) mmol/L Chloride 101 (98-107) mmol/L Carbon Dioxide 30 (21-32) mmol/L Anion Gap 6.0 (3-11) BUN 8 (7-18) mg/dl Creatinine 0.75 (0.6-1.4) mg/dl Est Cr Clr Drug Dosing 139.2 ml/min Est GFR ( Amer) 122.2 Est GFR (Non-Af Amer) 105.5 BUN/Creatinine Ratio 11.1 (10-20) Glucose 115 H (70-99) mg/dl Calcium 8.2 L (8.5-10.1) mg/dl
[2020-03-24] MEDS: MULTIVITAMIN TAB PO SCH (08:24)
[2020-03-24] MEDS: ENOXAPARIN INJ 40 MG/0.4 ML SYR SQ SCH (08:24)
[2020-03-24] MEDS: DOCUSATE SODIUM 100 MG CAP PO SCH ×2 (08:24→20:00)
[2020-03-24] MEDS: diphenhydrAMINE Capsule 25 MG CAP PO PRN (08:32)
[2020-03-24] MEDS: SENNA 8.6 MG TAB PO SCH (20:00)
[2020-03-25] MEDS: oxyCODONE HCL IR 5 MG TAB (IMMEDIATE RELEASE) PO PRN ×3 (01:53→12:51)
[2020-03-25] MEDS: ACETAMINOPHEN 500 MG TAB PO SCH ×2 (05:03→12:56)
[2020-03-25 07:33] LABS: Basophils # (auto) 0.04 K/uL (0-0.2); Basophils % (auto) 0.5 %; Eosinophils # (auto) 0.31 K/uL (0-0.5); Eosinophils % (auto) 3.6 %; Hematocrit (blood only) 27.3 % (42-52); Hemoglobin 9.2 g/dL (14.0-18.0); Immature Granulocytes # (auto) 0.03 K/uL (0.00-0.02); Immature Granulocytes % (auto) 0.3 %; Lymphocytes % (auto) 19.6 %; Mean Corpuscular Hemoglobin 30.6 pg (25-34); Mean Corpuscular Hgb Conc 33.7 g/dL (32-36); Mean Corpuscular Volume 90.7 fL (80-100); Mean Platelet Volume 8.7 fL (7.4-10.4); Monocytes # (auto) 0.94 K/uL (0.11-0.59); Monocytes % (auto) 10.8 %; Neutrophils # (auto) 5.65 K/uL (1.4-6.5); Neutrophils % (auto) 65.2 %; Platelet Count 256 K/uL (130-400); RDW Coefficient of Variation 12.8 % (11.5-14.5); RDW Standard Deviation 42.2 fL (36.4-46.3); Red Blood Count 3.01 M/uL (4.7-6.1); White Blood Count 8.67 K/uL (4.8-10.8)
[2020-03-25 08:17] LABS: BUN Creatinine Ratio 11.6 (10-20); Calcium 8.5 mg/dl (8.5-10.1); Creatinine Clr Calc Pharmacy 130.5 ml/min; Est GFR (Non-African American) 102.7; Potassium 3.8 mmol/L (3.5-5.1)
[2020-03-25] MEDS: DOCUSATE SODIUM 100 MG CAP PO SCH (08:20)
[2020-03-25] MEDS: ENOXAPARIN INJ 40 MG/0.4 ML SYR SQ SCH (08:20)
[2020-03-25] MEDS: MULTIVITAMIN TAB PO SCH (08:20)
--- NOTE | 2020-03-25 09:09 | Orthopedic Progress Note ---
Date of Service March 25, 2020 Assessment & Plan (1) Degenerative joint disease of right hip: (2) Degenerative joint disease of left hip: s/p B/L anterior MAVERICK POD#4 -ancef x 24 -DVT ppx: SCDs, TEDs, Lovenox daily -WBAT B/L LE -PT/OT -PO XR B/L hips demonstrates well aligned well fixed total hip prothesis without fracture/dislocation -am labs as above, hgb 9.2 -DC planning - home with home health POD#3 -ancef x 24 -DVT ppx: SCDs, TEDs, Lovenox daily -WBAT B/L LE -PT/OT, patient feels as though he is not quite safe to go home yet, as he has little help there. He would like to work with PT one more day and D/C tomorrow. -PO XR B/L hips demonstrates well aligned well fixed total hip prothesis without fracture/dislocation -am labs as above, hgb 9.5 -DC planning - home with home health, POD#2 -ancef x 24 -DVT ppx: SCDs, TEDs, Lovenox daily -WBAT B/L LE -PT/OT -PO XR B/L hips demonstrates well aligned well fixed total hip prothesis without fracture/dislocation -am labs as above, hgb 10.4 -DC planning - home with home health POD#1 -ancef x 24 -DVT ppx: SCDs, TEDs, Lovenox daily -WBAT B/L LE -PT/OT -PO XR B/L hips demonstrates well aligned well fixed total hip prothesis without fracture/dislocation -am labs as above, hgb 10.5 -DC planning Admission and Anticipated Discharge Date Admission Date: March 21, 2020 Subjective Post Operative Progress Note Patient seen resting in bed, comfortable, pain well controlled, no acute issues. Patient ready to go home. Denies F/C/N/V/SOB/CP. Review of Systems Review of Systems: All systems reviewed & are unremarkable except as noted in HPI & below Constitutional: as per Subjective / HPI Physical Exam Physical Exam: LLE NVSI +EHL/FHL/TA/GS SILT grossly, +2 DP pulse, compartments soft NT, dressing cdi. RLE NVSI +EHL/FHL/TA/GS SILT grossly, +2 DP pulse, compartments soft NT, dressing cdi. Constitutional: WD/WN, vitals as above Results & Data ([facility]) Vital Signs (Past 12 Hours) Vital Signs Temp Pulse Resp BP Pulse Ox 03/25/20 08:00 37 C 87 16 151/91 H 95 03/24/20 23:37 37.0 C 83 14 118/72 94 Laboratory Results 03/25/20 03/25/20 Range/Units 07:15 07:15 WBC 8.67 (4.8-10.8) K/uL RBC 3.01 L (4.7-6.1) M/uL Hgb 9.2 L (14.0-18.0) g/dL Hct 27.3 L (42-52) % MCV 90.7 (80-100) fL MCH 30.6 (25-34) pg MCHC 33.7 (32-36) g/dL RDW Std Deviation 42.2 (36.4-46.3) fL RDW Coeff of Vincent 12.8 (11.5-14.5) % Plt Count 256 (130-400) K/uL MPV 8.7 (7.4-10.4) fL Immature Gran % (Auto) 0.3 % Neut % (Auto) 65.2 % Lymph % (Auto) 19.6 % [place] % (Auto) 10.8 % Eos % (Auto) 3.6 % Baso % (Auto) 0.5 % Neut # (Auto) 5.65 (1.4-6.5) K/uL Lymph # (Auto) 1.70 (1.2-3.4) K/uL [place] # (Auto) 0.94 H (0.11-0.59) K/uL Eos # (Auto) 0.31 (0-0.5) K/uL Baso # (Auto) 0.04 (0-0.2) K/uL Immature Gran # (Auto) 0.03 H (0.00-0.02) K/uL Sodium 138 (136-145) mmol/L Potassium 3.8 (3.5-5.1) mmol/L Chloride 104 (98-107) mmol/L Carbon Dioxide 30 (21-32) mmol/L Anion Gap 4.0 (3-11) BUN 9 (7-18) mg/dl Creatinine 0.80 (0.6-1.4) mg/dl Est Cr Clr Drug Dosing 130.5 ml/min Est GFR ( Amer) 119.0 Est GFR (Non-Af Amer) 102.7 BUN/Creatinine Ratio 11.6 (10-20) Glucose 119 H (70-99) mg/dl Calcium 8.5 (8.5-10.1) mg/dl
[2020-03-25] MEDS: HYDROmorphone INJ 0.5 MG/0.5 ML SYR IV PRN (11:52)
--- NOTE | 2020-03-25 17:05 | Discharge Summary ---
Date of Service March 25, 2020 Admission HPI Per Admitting Provider The patient is a 54 year old male who presents with complaints of severe bilateral hip pain and DJD. The patient has failed outpatient conservative treatments to this point which included NSAIDs, IA corticosteroid injections, home exercise/walking program and activty modification. The patient's pain and limited function have progressed to the point where they severely hinder their activities of daily living and they no longer tolerate exercise programs. They are requesting to proceed with total hip replacement surgery. Principal Diagnosis Bilateral anterior total hip replacements -Bilateral hip DJD Discharge Exam LLE NVSI +EHL/FHL/TA/GS SILT grossly, +2 DP pulse, compartments soft NT, dressing cdi. RLE NVSI +EHL/FHL/TA/GS SILT grossly, +2 DP pulse, compartments soft NT, dressing cdi. Constitutional WD/WN, vitals as above Discharge Data Allergies Allergy/AdvReac Type Severity Reaction Status Date / Time No Known Drug Allergies Allergy Unknown . Verified 03/21/20 07:14 Consultations 03/22/20 08:00 Consult Case Management - Discharge Planning Routine Procedures Performed Operation Date: 03/21/20 09:20 Actual Procedures p Left Anterior Total Hip Arthroplasty, Right Anterior Total Hip Arthroplasty(Bilateral) - Shon Ellison DO Ordered Studies 03/21/20 09:20 FL fluoroscopy <1hr Routine FL hip LT 1V Routine FL hip RT 1V Routine Hospital Course (1) Degenerative joint disease of right hip: (2) Degenerative joint disease of left hip: The patient is a 54 -year-old male who presents with long standing history of severe bilateral hip DJD and failed outpatient conservative treatments. The patient's symptoms have progressed to the point where it has been difficult to perform even normal activities of daily living. I indicated the patient for a bilateral anterior total hip arthroplasty, the risks, benefits and complications of the procedure include but not limited to infection, bleeding, damage to bone, nerves, vessels, surrounding soft tissue, may develop blood clots, loss of function, leg length discrepancy, dislocation, failure of the components, loosening of the components, the need for additional surgery and . The patient wished to proceed with surgery at this time and informed consent was obtained. Hospital Course: On 03/21/20 the patient was taken to the operating room, adequate anesthesia administered and underwent a bilateral anterior total hip arthroplasty. The patient tolerated the procedure well and was taken to the PACU in stable condi tion. Post-operatively the patient was started on a DVT ppx medication and given appropriate IV antibiotics. Consults were placed to physical therapy, occupational therapy and case management. POD#1 -ancef x 24 -DVT ppx: SCDs, TEDs, Lovenox daily -WBAT B/L LE -PT/OT -PO XR B/L hips demonstrates well aligned well fixed total hip prothesis without fracture/dislocation -am labs as above, hgb 10.5 -DC planning POD#2 -ancef x 24 -DVT ppx: SCDs, TEDs, Lovenox daily -WBAT B/L LE -PT/OT -PO XR B/L hips demonstrates well aligned well fixed total hip prothesis without fracture/dislocation -am labs as above, hgb 10.4 -DC planning - home with home health POD#3 -ancef x 24 -DVT ppx: SCDs, TEDs, Lovenox daily -WBAT B/L LE -PT/OT, patient feels as though he is not quite safe to go home yet, as he has little help there. He would like to work with PT one more day and D/C tomorrow. -PO XR B/L hips demonstrates well aligned well fixed total hip prothesis without fracture/dislocation -am labs as above, hgb 9.5 -DC planning - home with home health POD#4 -ancef x 24 -DVT ppx: SCDs, TEDs, Lovenox daily -WBAT B/L LE -PT/OT -PO XR B/L hips demonstrates well aligned well fixed total hip prothesis without fracture/dislocation -am labs as above, hgb 9.2 -DC planning - home with home health The patients hospital stay was relatively uneventful and they were deemed stable by the orthopedic team and consultants to be discharged home with on 03/25/20. Discharge Instructions: Upon discharge the patient may weight bear as tolerates through their operative extremities. They were instructed to keep the incision clean and dry at all times. The patient may shower but should not submerge the incision, avoid bathing, pools and hot tubs. The patient was given a script for pain medication and should take as instructed. The patient was given a script for DVT ppx Lovenox 40mg daily and should take as directed. The patient was instructed to not drive or travel for long distances until cleared to do so. If the patient develops any symptoms of fevers, chills, nausea, vomiting, increased redness, swelling, pain or drainage from the surgical site, they should notify the office and/or proceed to the nearest emergency room. The patient should follow up in 10-14 days after surgery for their routine post-operative follow-up appointment and should call the office, to confirm the date and time. Total Time Total Time Spent Total Time Spent (In Minutes): 60 Discharge Plan Discharge Items Patient Disposition: Home - Home Health Services Reason For Visit: Osteoarthritis, Left Hip, Osteoarthritis, Right Hi Discharge Diagnosis: Bilateral anterior total hip replacements -Bilateral hip DJD Condition on Discharge: Good Activity: Per Instructions section Lifting: Wait until after follow-up appointment Bathing: Keep incision dry Bathing Comment: No bathing, pools or hot tubs Sexual Activity: Wait until after follow-up appointment Exercise/Sports: Wait until after follow-up appointment Driving/Machine Use: No driving Weightbearing: Full weightbearing Non-emergency contact: Primary Care Provider and Surgeon Call non-emergency contact if: you have any medication questions, your symptoms worsen, your pain is not controlled, your pain is worsening, your pain is unusual for you, your pain is concerning for you, you have a fever, your temperature is above 101, your wound has increased redness, your wound has increased drainage and your wound pain has increased Follow-up/Referrals: Cori Urbina MD [Primary Care Provider] - Diet: Regular Addtl Attending Provider Instructions: ACTIVITY RECOMMENDATIONS: SELF CARE INSTRUCTIONS AFTER TOTAL HIP REPLACEMENT : Direct Anterior Approach Until the incision and soft tissues around your hip have healed, there is a possibility that the hip prosthesis could dislocate. A. Hip flexion ( Up & Down out of chair or steps ) may be difficult. This is normal. B. Numbness in front of the thigh is also normal for a few weeks. C. Use hand rails when walking on stairs. D. Wear low heeled shoes with non-slip soles. E. Be sure that your floors are free of things that could trip you - throw rugs, electrical cords, small objects. Avoid wet and waxed floors, especially with crutches and canes. F. Try to walk several times a day with rest periods between. G. Continue with all the exercises taught to you in the hospital. Again, make walking a part of your daily routine. SPECIAL CARE INSTRUCTIONS: VERY IMPORTANT TO READ AND REVIEW A. You may still be at risk for phlebitis and blood clots. 1. Wear surgical stockings (ISIDRO hose) for 2 weeks after surgery to improve circulation and reduce swelling. 2. Take Lovenox 40mg daily for 4 weeks or as directed by your doctor. This is your blood thinner. 3. High risk patients may be prescribed a stronger blood thinner if necessary. 4. If you are on Coumadin normally, your family doctor/lead pressman [employer] should monitor your blood work. Expect a phone call the day of or the day after bloodwork is drawn to adjust your dosage. B. You must take antibiotics before having dental work, bladder, bowel and other surgery. Your doctor will provide you with a permanent card to carry describing precautions. C. Call [facility] if you have a fever, redness or swelling around the incision, cloudy drainage from incision, or sudden increase in pain in your hip, not relieved by your regular pain medication. D. Please call the office at if you have any concerns or questions about your operation or recovery. * YOU MAY SHOWER, NO TUB BATHS UNTIL CLEARED BY YOUR DOCTOR. - Keep an extra close eye on the top portion of your incision. Be sure to keep clean & dry. * WEAR ISIDRO HOSE 20 HOURS PER DAY FOR 2 WEEKS. * YOU MAY PROGRESS FROM A WALKER, TO A CANE, TO INDEPENDENT AT YOUR OWN PACE. * MOST PATIENTS WILL HAVE HOME NURSING FOR THERAPY. IF YOU DECIDE TO DO OUTPATIENT PHYSICAL THERAPY, PLEASE SCHEDULE THIS 3 TIMES PER WEEK. * DERMABOND Prineo- This is a mesh tape dressing that is covered with glue. It should remain in place until the incision is properly healed, usually 10-14 days. This dressing is designed to naturally slough off. You may trim the excess mesh tape as it peels off. Incision may be briefly wet in a shower. Dry immediately by blotting with a clean, dry towel. Do not bath or swim until instructed by your doctor. Do not scratch, rub, or pick at the dressing. Do not apply any topical ointments or lotions until dressing is completely removed and/or instructed by your doctor. There may be a small piece of suture material at one end of your incision. Do not pull or trim this. If it is bothersome or catching on clothing, you may cover it with a band-aid. FOLLOW UP VISIT: If appointment is not already scheduled: Please call [facility] to make a follow-up appointment for 2 weeks after your surgery at . Pending Studies at Discharge: No Stand-Alone Forms: My [facility], Opioid Pain Management, Smoking Cessation Medications and DC Order Prescriptions: New enoxaparin 40 mg/0.4 mL Syringe 40 mg subcut Q24H Qty: 28 RF: 0 acetaminophen 500 mg Tablet 1,000 mg PO Q8 PRN (Reason: pain/fevers) Qty: 90 RF: 0 oxycodone 5 mg Tablet 5 mg PO Q6H MDD 4 PRN (Reason: pain) Qty: 30 RF: 0 sennosides [Senokot] 8.6 mg Tablet 17.2 mg PO HS PRN (Reason: constipation) Qty: 28 RF: 0 Continued cholecalciferol (vitamin D3) [Vitamin D3] 125 mcg (5,000 unit) Tablet 125 mcg PO QAM RF: 0 potassium gluconate 595 mg (99 mg) Tablet 595 mg PO QAM RF: 0 ascorbic acid (vitamin C) [Vitamin C] 1,000 mg Tablet 2,000 mg PO QAM RF: 0 red yeast rice 600 mg Capsule 600 mg PO QAM RF: 0 magnesium oxide 400 mg Capsule 400 mg PO QAM RF: 0 L-Arginine(alpha-ketoglutarat) 350 mg Tablet Extended Release 600 mg PO QAM RF: 0 calcium 600 mg Capsule 600 mg PO QAM RF: 0 cetirizine 10 mg Tablet 10 mg PO QAM RF: 0 omega 9-[id number]-fish oil 900-1,400 mg Capsule,Delayed Release(Dr/Ec) 1 cap PO QAM RF: 0 diphenhydramine HCl 25 mg Tablet 25 mg PO HS PRN (Reason: Sleep) RF: 0 Discontinued meloxicam 15 mg Tablet 15 mg PO QAM RF: 0 Discharge Orders: Discharge Order (Routine); Ordered 03/25/20 Ordered By: Shon Flood/Other Patient Handouts: 5 Steps for Eating Healthier, A1C Admission Data Admit Date/Time: 03/21/20 14:45 Attending Provider: Shon Ellison Admit Provider: Shon Ellison Primary Care Provider: Cori Urbina Other Providers: [facility],Home Healthcare Other Interventions: Discharge Summary Assessment (RN) Last Done: 03/25/20 07:30
== END 2020-03-25 15:00 | disposition home health service (06) ==
LOC: 3W 06:45 → ASU 06:45